=== PATIENT | female | born 1975 | race African-American/Black ===

== ENCOUNTER 2019-02-19 08:18 | Emergency (ER) | payer SELFPAY ==
[2019-02-19 09:17] LABS: Absolute Lymphocytes (CBC) 1.8 K/uL (0.7-4.9); Basophils % 0.8 % (0-1.3); Hematocrit 39.3 % (36.0-45.0); Lymphocytes % 28.8 % (15.3-44.8); MPV 11.1 fL (7.6-11.3); RBC Red Blood Cell Count 5.47 M/uL (3.86-4.86)
--- NOTE | 2019-02-19 09:25 | RAD REPORT ---
EXAM DESCRIPTION: RAD - Chest Single View - 02/19/2019 9:01 am CLINICAL HISTORY: CHEST PAIN Chest pain. COMPARISON: <Comparisons> FINDINGS: Portable technique limits examination quality. The lungs are grossly clear. The heart is upper limit of normal in size. No displaced fractures. IMPRESSION: No acute intrathoracic process suspected.
[2019-02-19 09:49] LABS: ALT/SGPT 27 U/L (12-78); AST/SGOT 19 U/L (15-37); Albumin 3.6 g/dL (3.4-5.0); Alkaline Phosphatase 78 U/L (45-117); BUN Blood Urea Nitrogen 12 mg/dL (7-18); Bicarbonate 25 mmol/L (21-32); Bilirubin Direct 0.2 mg/dL (0-0.2); Bilirubin Total 0.4 mg/dL (0.2-1.0); Glucose Level 120 mg/dL (74-106); NT PRO-BNP 13 pg/mL (<125); Potassium 3.9 mmol/L (3.5-5.1); Protein, Total 7.5 g/dL (6.4-8.2); Sodium Level 139 mmol/L (136-145); Troponin (Emerg Dept Use Only) < 0.02 ng/mL (0.0-0.045)
--- NOTE | 2019-02-19 10:00 | ER ---
Nurse's Notes [facility] Name: Susan Taylor Age: 43 yrs Sex: Female : 1975 Arrival Date: 02/19/2019 Time: 08:23 Bed 5 Private MD: Diagnosis: Pain in right shoulder;Chest pain, unspecified;Pleurisy Presentation: 02/19 08:40 Presenting complaint: Patient states: Shoulder pain that began about 1-2 days ago, sg worsening this morning, reports having pain with inspiration which makes it harder to breath, denies N/V/D/Fever at this time, no trauma/injury reported. Transition of care: patient was not received from another setting of care. Onset of symptoms was February 19, 2019. Risk Assessment: Do you want to hurt yourself or someone else? Patient reports no desire to harm self or others. Initial Sepsis Screen: Does the patient meet any 2 criteria? No. Patient's initial sepsis screen is negative. Does the patient have a suspected source of infection? No. Patient's initial sepsis screen is negative. Care prior to arrival: None. 08:40 Method Of Arrival: Ambulatory sg 08:40 Acuity: RAMIREZ 4 sg Historical: - Allergies: 08:41 No Known Allergies; sg - PMHx: 09:05 Hypertension; Borderline Diabetes; Fibroids; sg - PSHx: 09:05 D \T\ C; Exploratory Laparatomy; sg - Immunization history:: Adult Immunizations up to date. - Social history:: Smoking status: Patient/guardian denies using tobacco. - Ebola Screening: : Patient negative for fever greater than or equal to 101.5 degrees Fahrenheit, and additional compatible Ebola Virus Disease symptoms Patient denies exposure to infectious person Patient denies travel to an Ebola-affected area in the 21 days before illness onset No symptoms or risks identified at this time. - Family history:: not pertinent. - Hospitalizations: : No recent hospitalization is reported. Screenin:56 Abuse screen: Denies threats or abuse. Denies injuries from another. Nutritional sg screening: No deficits noted. Tuberculosis screening: No symptoms or risk factors identified. Never had TB. Fall Risk None identified. Assessment: 08:30 General: Appears in no apparent distress. well groomed, well developed, well nourished, sg Behavior is calm, cooperative, appropriate for age. Pain: Complains of pain in right subscapular area and right sternocleidomastoid Quality of pain is described as sharp, shooting. Neuro: Level of Consciousness is awake, alert, obeys commands, Oriented to person, place, time, situation, Clerical Aide Teacher are equal bilaterally. Cardiovascular: Heart tones S1 S2 present Patient's skin is warm and dry. Chest pain is denied. Respiratory: Airway is patent Respiratory effort is even, unlabored, Respiratory pattern is regular, symmetrical. GI: Abdomen is round non-distended. : No signs and/or symptoms were reported regarding the genitourinary system. EENT: No signs and/or symptoms were reported regarding the EENT system. Derm: Skin is intact, is healthy with good turgor, Skin is normal, Skin temperature is warm. Musculoskeletal: Circulation, motion, and sensation intact. Range of motion: intact in all extremities, Reports pain in right trapezius, right subscapular area and right sternocleidomastoid. 08:54 Reassessment: Patient appears in no apparent distress at this time. Patient and/or sg family updated on plan of care and expected duration. Pain level reassessed. Patient is alert, oriented x 3, equal unlabored respirations, skin warm/dry/pink. Vital Signs: 08:30 BP 142 / 77; Pulse 91; Resp 18; Temp 98.3; Pulse Ox 98% on R/A; sg 10:00 BP 144 / 92; Pulse 90; Resp 17; Pulse Ox 100% on R/A; sg ED Course: 08:23 Patient arrived in ED. mr 08:30 Patient has correct armband on for positive identification. Bed in low position. Call light in reach. Side rails up X2. site monitor on. Pulse ox on. NIBP on. Warm blanket given. Head of bed elevated. 08:33 Ramy Castaneda, RN is Primary Nurse. sg 08:34 Momo Wu MD is Attending Physician. rn 08:41 Triage completed. sg 08:41 Arm band placed on. sg 08:53 Initial lab(s) drawn, by me, sent to lab. Inserted saline lock: 20 gauge in right sg antecubital area, using aseptic technique. Blood collected. 09:02 XRAY Chest (1 view) In Process Unspecified. EDMS 10:10 No provider procedures requiring assistance completed. IV discontinued, intact, sg bleeding controlled, No redness/swelling at site. Pressure dressing applied. Administered Medications: No medications were administered Outcome: 10:00 Discharge ordered by . rn 10:10 Discharged to home ambulatory. sg 10:10 Condition: good 10:10 Discharge instructions given to patient, Instructed on discharge instructions, follow up and referral plans. safety practices, Demonstrated understanding of instructions, follow-up care. 10:13 Patient left the ED. ss Signatures: Dispatcher [employer] EDVT Ramy Castaneda RN Bonnie Kat Roman, MD MD rn Smirch, Shelby, RN RN ss Corrections: (The following items were deleted from the chart) 10:23 10:10 Discharge instructions given to patient, Instructed on discharge instructions, sg follow up and referral plans. medication usage, safety practices, Demonstrated understanding of instructions, follow-up care, medications, Prescriptions given X 2, sg
--- NOTE | 2019-02-19 10:01 | EDPHYS ---
Physician Documentation [facility] Name: Susan Taylor Age: 43 yrs Sex: Female : 1975 Arrival Date: 02/19/2019 Time: 08:23 Bed 5 Private MD: ED Physician Momo Wu HPI: 02/19 08:45 This 43 yrs old Black Female presents to ER via Ambulatory with complaints of Shoulder rn Pain, Breathing Difficulty. 08:45 The patient or guardian complains of pain, that is acute. right shoulder and right rn shoulder blade. 08:45 Onset: The symptoms/episode began/occurred 2 day(s) ago. Modifying factors: the rn symptoms are alleviated by nothing. The symptoms are aggravated by movement. Severity of symptoms: At their worst the symptoms were mild, in the emergency department the symptoms are unchanged. The patient has not experienced similar symptoms in the past. Reports 2 days ago began with right shoulder/scapula pain, worse with movement, assoc with non-productive cough, and pain when she breathes now. No hemoptysis/fever/palpitations. Is a long time smoker, no COPD. No fever. No recent injury.. Historical: - Allergies: 08:41 No Known Allergies; sg - PMHx: 09:05 Hypertension; Borderline Diabetes; Fibroids; sg - PSHx: 09:05 D \T\ C; Exploratory Laparatomy; sg - Immunization history:: Adult Immunizations up to date. - Social history:: Smoking status: Patient/guardian denies using tobacco. - Ebola Screening: : Patient negative for fever greater than or equal to 101.5 degrees Fahrenheit, and additional compatible Ebola Virus Disease symptoms Patient denies exposure to infectious person Patient denies travel to an Ebola-affected area in the 21 days before illness onset No symptoms or risks identified at this time. - Family history:: not pertinent. - Hospitalizations: : No recent hospitalization is reported. ROS: 08:45 Constitutional: Negative for fever, chills, and weight loss, Eyes: Negative for injury, rn pain, redness, and discharge, Neck: Negative for injury, pain, and swelling, Cardiovascular: Negative for palpitations, and edema, Respiratory: Negative for wheezing, + sob and cough, + pleuritic pain Abdomen/GI: Negative for abdominal pain, nausea, vomiting, diarrhea, and constipation, MS/Extremity: Negative for injury and deformity, Skin: Negative for injury, rash, and discoloration, Neuro: Negative for headache, weakness, numbness, tingling, and seizure. Exam: 08:45 Constitutional: This is a well developed, well nourished patient who is awake, alert, rn and in no acute distress. Ambulatory without difficulty or distress Head/Face: Normocephalic, atraumatic. Eyes: Pupils equal round and reactive to light, extra-ocular motions intact. Lids and lashes normal. Conjunctiva and sclera are non-icteric and not injected. Cornea within normal limits. Periorbital areas with no swelling, redness, or edema. ENT: MMM Neck: Trachea midline, no thyromegaly or masses palpated, and no cervical lymphadenopathy. Supple, full range of motion without nuchal rigidity, or vertebral point tenderness. No Meningismus. Cardiovascular: Regular rate and rhythm. No pulse deficits. Respiratory: Lungs have equal breath sounds bilaterally, clear to auscultation. No increased work of breathing, no retractions or nasal flaring. MS/ Extremity: Pulses equal, no cyanosis. Neurovascular intact. Full, normal range of motion. Equal circumference. Neuro: Awake and alert, GCS 15, oriented to person, place, time, and situation. Cranial nerves II-XII grossly intact. Motor strength 5/5 in all extremities. Sensory grossly intact. Cerebellar exam normal. Normal gait. 08:56 ECG was reviewed by the Attending Physician. rn Vital Signs: 08:30 BP 142 / 77; Pulse 91; Resp 18; Temp 98.3; Pulse Ox 98% on R/A; sg 10:00 BP 144 / 92; Pulse 90; Resp 17; Pulse Ox 100% on R/A; sg MDM: 08:34 Patient medically screened. rn 09:57 Differential diagnosis: tendonitis, pleurisy, msk pain, strain, radiculopathy. Data rn reviewed: vital signs, nurses notes, lab test result(s), EKG, radiologic studies, plain films, and as a result, I will discharge patient. Counseling: I had a detailed discussion with the patient and/or guardian regarding: the historical points, exam findings, and any diagnostic results supporting the discharge/admit diagnosis, lab results, radiology results, the need for outpatient follow up, to return to the emergency department if symptoms worsen or persist or if there are any questions or concerns that arise at home. Counseling: I had a detailed discussion with the patient and/or guardian regarding: smoking cessation. Special discussion: Based on the patient's history, exam, and Dx evaluation, there is no indication for emergent intervention or inpatient Tx. It is understood by the patient/guardian that if the Sx's persist or worsen they need to return immediately for re-evaluation. I discussed with the patient/guardian in detail that at this point there is no indication for admission to the hospital. It is understood, however, that if the symptoms persist or worsen the patient needs to return immediately for re-evaluation. Based on the history and exam findings, there is no indication for further emergent testing or inpatient evaluation. I discussed with the patient/guardian the need to see the customer service associate for further evaluation of the symptoms. I discussed with the patient/guardian the need to see the primary care provider for further evaluation of the symptoms. ED course: No acute findings on labs/ecg/cxr, will dc home, recommend smoking cessation, and anti-inflammatories, pain is reproducible with movement of arm, complains more of shoulder/scapula pain than chest pain, and oxygen normal. Neg d-dimer. Will dc home with pcp f/u. . 02/19 08:44 Order name: Basic Metabolic Panel; Complete Time: 09:57 rn 02/19 08:44 Order name: CBC with Diff; Complete Time: 09:46 rn 02/19 08:44 Order name: LFT's; Complete Time: 09:57 rn 02/19 08:44 Order name: NT PRO-BNP; Complete Time: 09:57 rn 02/19 08:44 Order name: Troponin (emerg Dept Use Only); Complete Time: 09:57 rn 02/19 08:45 Order name: D-Dimer; Complete Time: 09:46 rn 02/19 08:44 Order name: XRAY Chest (1 view); Complete Time: 09:46 rn 02/19 08:44 Order name: EKG; Complete Time: 08:45 rn 02/19 08:44 Order name: Cardiac monitoring; Complete Time: 08:46 rn 02/19 08:44 Order name: EKG - Nurse/Tech; Complete Time: 09:06 rn 02/19 08:44 Order name: IV Saline Lock; Complete Time: 08:45 rn 12 08:44 Order name: Labs collected and sent; Complete Time: 08:45 rn 02/19 08:44 Order name: O2 Per Protocol; Complete Time: 08:46 rn 02/19 08:44 Order name: O2 Sat Monitoring; Complete Time: 08:46 rn EC:56 Rate is 73 beats/min. Rhythm is regular. QRS [place] is Normal. DE interval is normal. QRS rn interval is normal. QT interval is normal. No Q waves. T waves are Normal. No ST changes noted. Clinical impression: Normal ECG. Interpreted by me. Reviewed by me. Administered Medications: No medications were administered Disposition: 02/19/19 10:00 Discharged to Home. Impression: Pain in right shoulder, Chest pain, unspecified, Pleurisy. - Condition is Stable. - Discharge Instructions: Nonspecific Chest Pain, Hypertension, Pain Without a Known Cause, Pleurisy, Steps to Quit Smoking. - Medication Reconciliation Form, Thank You Letter, Antibiotic Education, Prescription Opioid Use form. - Follow up: Private Physician; When: As needed; Reason: Recheck today's complaints, Re-evaluation by your physician. - Problem is new. - Symptoms have improved. Signatures: Dispatcher [employer] EDMS Ramy Castaneda RN RN sg Nieto, Roman, MD MD rn Smirch, Shelby, RN RN ss Corrections: (The following items were deleted from the chart) 10:13 10:00 02/19/2019 10:00 Discharged to Home. Impression: Pain in right shoulder; Chest ss pain, unspecified; Pleurisy. Condition is Stable. Forms are Medication Reconciliation Form, Thank You Letter, Antibiotic Education, Prescription Opioid Use. Follow up: Private Physician; When: As needed; Reason: Recheck today's complaints, Re-evaluation by your physician. Problem is new. Symptoms have improved. rn
[2019-02-19 10:38] VITALS: BP 142/77; TEMP 98.3; O2SAT 98
--- NOTE | 2019-02-19 11:28 | EKG ---
Test Date: 2019-02-19 Test Time: 08:52:54 Animal Care Service Worker: MELIA MEASUREMENT RESULTS: Intervals: Rate: 73 MI: 148 QRSD: 80 QT: 412 QTc: 453 [place]: P: 56 MI: 148 QRS: 36 T: 20 INTERPRETIVE STATEMENTS: Normal sinus rhythm Normal ECG No previous ECG available for comparison Electronically Signed On 02-19-19 11:27:20 TELEGRAPH PRINTER MECHANIC by Alfred Andre
== END 2019-02-19 10:13 | disposition home or self-care (01) ==
LOC: ER 08:18
DX: R07.9 Chest pain, unspecified (principal); R09.1 Pleurisy; I10 Essential (primary) hypertension
CPT/HCPCS: 36415; 71045; 80048; 80076; 83880; 84484; 85025; 85379; 93005; 99284